=== PATIENT | male | born 1995 | race Caucasian/White ===

== ENCOUNTER 2020-12-18 14:49 | Day surgery (SDC) | payer BC ==
--- NOTE | 2020-12-18 15:33 | PCM.HP.2 ---
H&P History of Present Illness - General Date of Service: 12/18/20 Admit Problem/Dx: Admission Diagnosis/Problem Admission Diagnosis/Problem Appendicitis Source of Information: Patient History Limitations: Reports: No Limitations - History of Present Illness Initial Comments - Free Text/Narative: Healthy 25 yo man developed abdominal pain last night, most severe at right lo wer quadrant. He reports nausea as well. No vomiting. Not passing flatus today. No fever. He has never had this pain before. He has no medical problems, no prior abdominal surgery, and has lab work and imaging that show findings of acute appendicitis. Middle Abdominal Pain Score (Numeric/FACES): 6 - Related Data Allergies/Adverse Reactions: Allergies Allergy/AdvReac Type Severity Reaction Status Date / Time No Known Allergies Allergy Verified 12/18/20 14:59 Home Medications: Home Meds . [No Known Home Meds] 12/18/20 [History] Past Medical History HEENT History: Reports: None Cardiovascular History: Reports: None Respiratory History: Reports: None Gastrointestinal History: Reports: GERD, PUD Genitourinary History: Reports: None Musculoskeletal History: Reports: Back Pain, Chronic Neurological History: Reports: None Psychiatric History: Reports: ADD Endocrine/Metabolic History: Reports: None Hematologic History: Reports: None Immunologic History: Reports: None Oncologic (Cancer) History: Reports: None Dermatologic History: Reports: None - Infectious Disease History Infectious Disease History: Reports: Herpes, Novel Coronavirus Other Infectious Disease History: tested postive 3 months ago for COVID - Past Surgical History HEENT Surgical History: Reports: Oral Surgery Musculoskeletal Surgical History: Reports: None Social & Family History - Family History Family Medical History: No Pertinent Family History - Tobacco Use Tobacco Use Status *Q: Current Some Day Tobacco User Years of Tobacco use: 5 Packs/Tins Daily: 0.1 - Caffeine Use Caffeine Use: Reports: Coffee, Energy Drinks - Recreational Drug Use Recreational Drug Use: No H&P Review of Systems - Review of Systems: Review Of Systems: See Below General: Reports: Malaise HEENT: Reports: No Symptoms Pulmonary: Reports: No Symptoms Cardiovascular: Reports: No Symptoms Gastrointestinal: Reports: Abdominal Pain, Anorexia, Nausea Genitourinary: Reports: No Symptoms Musculoskeletal: Reports: No Symptoms Skin: Reports: No Symptoms Psychiatric: Reports: No Symptoms Neurological: Reports: No Symptoms Hematologic/Lymphatic: Reports: No Symptoms Immunologic: Reports: No Symptoms Exam - Exam Exam: See Below - Vital Signs Vital Signs: Last Vital Signs Temp 36.2 C 12/18/20 15:01 Pulse 80 12/18/20 15:01 Resp 18 12/18/20 15:01 BP 127/66 12/18/20 15:01 Pulse Ox 100 12/18/20 15:01 Weight: 72.575 kg - Exam General: Alert, Oriented, Cooperative HEENT: Conjunctiva Clear Neck: Supple, Trachea Midline Lungs: Clear to Auscultation, Normal Respiratory Effort Cardiovascular: Regular Rate, Regular Rhythm GI/Abdominal Exam: Other (McBurney point tenderness) Extremities: Normal Inspection Skin: Warm, Dry Neuro Extensive - Mental Status: Alert, Oriented x3 Psychiatric: Normal Mood Sepsis Event Note - Evaluation Sepsis Screening Result: No Definite Risk - Focused Exam Vital Signs: Vital Signs Temp Pulse Resp BP Pulse Ox 12/18/20 15:01 36.2 C 80 18 127/66 100 Problem List Initiated/Reviewed/Updated: Yes Orders Last 24hrs: Active Orders 24 hr Category Date Time Status Patient Status [ADT] Routine ADT 12/18/20 15:21 Active CORONAVIRUS COVID-19 WILLIE [MOLEC] Stat Lab 12/18/20 14:55 Received Schedule Procedure [COMM] Stat Oth 12/18/20 15:22 Ordered Assessment/Plan Comment:: Acute appendicitis. Plan for laparoscopic appendectomy. Anticipate discharge to home from PACU. - Mortality Measure Prognosis:: Good
[2020-12-18] MEDS ORDERED: Albuterol 0.083% 2.5 MG/3 ML Neb Soln NEB SCH (15:40)
[2020-12-18] MEDS ORDERED: Bupivacaine 0.5%/EPINEPHrine 1:200,000 50 ML MDV ONE (15:50)
--- NOTE | 2020-12-18 15:52 | PCM.PREANE ---
Preanesthetic Assessment - Procedure Proposed Procedure: Laparoscopic Appendectomy - Anesthesia/Transfusion/Family Hx Anesthesia History: Prior Anesthesia Without Reaction Family History of Anesthesia Reaction: No Transfusion History: No Prior Transfusion(s) - Review of Systems General: Appetite Pulmonary: No Symptoms (Some day smoker, vapes daily multiple times. ) Cardiovascular: No Symptoms Gastrointestinal: Abdominal Pain Neurological: Other (Chronic back pain) Other: Reports: None - Physical Assessment NPO Status Date: 12/17/20 NPO Status Time: 18:00 Vital Signs: Last Vital Signs Temp 36.2 C 12/18/20 15:01 Pulse 80 12/18/20 15:01 Resp 18 12/18/20 15:01 BP 127/66 12/18/20 15:01 Pulse Ox 100 12/18/20 15:01 Height: 1.85 m Weight: 72.575 kg ASA Class: 2E Mental Status: Alert & Oriented x3 Airway Class: Mallampati = 2 Dentition: Reports: Normal Dentition Thyro-Mental Finger Breadths: 3 Mouth Opening Finger Breadths: 3 ROM/Head Extension: Full Lungs: Clear to Auscultation, Normal Respiratory Effort Cardiovascular: Regular Rate, Regular Rhythm - Allergies Allergies/Adverse Reactions: Allergies Allergy/AdvReac Type Severity Reaction Status Date / Time No Known Allergies Allergy Verified 12/18/20 14:59 - Anesthesia Plan Pre-Op Medication Ordered: Anxiolytic, Other (Albuterol Nebulizer ) - Acknowledgements Anesthesia Type Planned: General Anesthesia Pt an Appropriate Candidate for the Planned Anesthesia: Yes Alternatives and Risks of Anesthesia Discussed w Pt/Guardian: Yes Pt/Guardian Understands and Agrees with Anesthesia Plan: Yes PreAnesthesia Questionnaire HEENT History: Reports: None Cardiovascular History: Reports: None Respiratory History: Reports: None Gastrointestinal History: Reports: GERD, PUD Genitourinary History: Reports: None Musculoskeletal History: Reports: Back Pain, Chronic Neurological History: Reports: None Psychiatric History: Reports: ADD Endocrine/Metabolic History: Reports: None Hematologic History: Reports: None Immunologic History: Reports: None Oncologic (Cancer) History: Reports: None Dermatologic History: Reports: None - Infectious Disease History Infectious Disease History: Reports: Herpes, Novel Coronavirus Other Infectious Disease History: tested postive 3 months ago for COVID - Past Surgical History HEENT Surgical History: Reports: Oral Surgery Musculoskeletal Surgical History: Reports: None - SUBSTANCE USE Tobacco Use Status *Q: Current Some Day Tobacco User Tobacco Use Within Last Twelve Months: Cigarettes Recreational Drug Use History: No - HOME MEDS Home Medications: Home Meds . [No Known Home Meds] 12/18/20 [History] - CURRENT (IN HOUSE) MEDS Current Meds: Current Medications Albuterol (Proventil Neb Soln) 2.5 mg NEB ONETIME HEMA Stop: 12/18/20 23:00 Last Admin: 12/18/20 15:46 Dose: 2.5 mg Documented by:
[2020-12-18] MEDS ORDERED: Lidocaine 1% 4 ML ONE (15:55)
[2020-12-18] MEDS ORDERED: Ondansetron 4 MG/2 ML SDV ONE (15:55)
[2020-12-18] MEDS ORDERED: Rocuronium 50 MG/5 ML Vial ONE (15:55)
[2020-12-18] MEDS ORDERED: Lactated Ringers 1,000 ML ONE (15:55)
[2020-12-18] MEDS ORDERED: Propofol 200 MG/20 ML SDV ONE (15:56)
[2020-12-18] MEDS ORDERED: fentaNYL 250 MCG/5 ML SDV ONE (15:56)
[2020-12-18] MEDS ORDERED: Midazolam 1 MG/ML 2 ML SDV ONE ×2 (15:56→17:30)
--- NOTE | 2020-12-18 16:02 | PCM.PRNOTE ---
- Free Text/Narrative Note: Date: 12/18/2020 Operation: laparoscopic appendectomy Diagnosis: acute appendicitis Surgeon: Leonid Hernandez MD Antibiotic: 2 g cefoxitin IV pre-op EBL: 10 cc Findings: acute appendicitis without gangrene, perforation or abscess Detailed Report: The patient was taken to the OR and placed on the table in supine position. Time out was performed. General endotracheal anesthesia was initiated. The patient's left arm was tucked at his side. Abdominal hair was clipped and the abdomen was prepped and draped in usual sterile fashion. A Veress needle was placed at the left upper quadrant to establish pneumoperitoneum. Once insufflated to 15 mm Hg, Air was aspirated at the umbilicus. A 12 mm bladed trocar was placed just inferior to the umbilicus and a 5 mm 30 degree laparoscope was inserted into the abdomen. The patient was placed in Trendelenburg and rotated to the surgeon standing on the patient's left side. Additional 5 mm ports were placed superior to the pubic symphysis and at the left lower quadrant under laparoscopic visualization. The ascending colon and cecum were adherent to the anterior abdominal wall; these attachments were taken down with the Ligasure. The appendix was identified coming off the cecum and appeared inflamed. There was inflammatory exudate that was stripped off the appendix in order to get better visualization and layout of the anatomy. A window as developed in the mesoappendix at the base of the appendix, and the appendix and part of the cecum were divided using a powered laparoscopic stapler with 30 mm white staple load x 3. The mesoappendix was divided using the [place] Ligasure. The specimen and fibrinous debris were placed in an endocatch bag and removed from the abdomen. The dissection field appeared dry after suctioning. The 12 mm port was removed and the fascia was closed with 0 vicryl using the laparoscopic suture passer. 5 mm ports were removed and pneumoperitoneum released. All incisions were closed at the level of skin with vicryl suture and dressed with dermabond. The patient was extubated in the OR and transferred to PACU in good condition.
[2020-12-18] MEDS ORDERED: Dexamethasone 4 MG/ML 5 ML MDV ONE (16:37)
[2020-12-18] MEDS ORDERED: Glycopyrrolate 0.2 MG/ML SDV ONE (16:54)
[2020-12-18] MEDS ORDERED: Ondansetron 4 MG Tab.DIS PO PRN (17:06)
[2020-12-18] MEDS ORDERED: Ondansetron 4 MG/2 ML SDV IVPUSH PRN (17:16)
[2020-12-18] MEDS ORDERED: HYDROmorphone 0.5 MG/0.5 ML Syringe IVPUSH PRN (17:16)
[2020-12-18] MEDS ORDERED: fentaNYL 100 MCG/2 ML SDV IVPUSH PRN (17:16)
--- NOTE | 2020-12-18 17:16 | PCM.POSTAN ---
POST ANESTHESIA ASSESSMENT - MENTAL STATUS Mental Status: Alert, Oriented - VITAL SIGNS Vital Signs: Last Vital Signs Temp 36.2 C 12/18/20 15:01 Pulse 80 12/18/20 15:01 Resp 18 12/18/20 15:01 BP 127/66 12/18/20 15:01 Pulse Ox 100 12/18/20 15:01 - RESPIRATORY Respiratory Status: Respiratory Rate WNL, Airway Patent, O2 Saturation Stable - CARDIOVASCULAR CV Status: Pulse Rate WNL, Blood Pressure Stable - GASTROINTESTINAL GI Status: No Symptoms - PAIN Pain Score: 5 - POST OP HYDRATION Hydration Status: Adequate & Stable
[2020-12-18] MEDS: Meperidine 50 MG/ML Vial IVPUSH ONE ×3 (17:30→17:37)
--- NOTE | 2020-12-18 18:36 | PCM48HPAN ---
Post Anesthesia Note - EVALUATION WITHIN 48HRS OF ANESTHETIC Vital Signs in Normal Range: Yes Patient Participated in Evaluation: Yes Respiratory Function Stable: Yes Airway Patent: Yes Cardiovascular Function Stable: Yes Hydration Status Stable: Yes Pain Control Satisfactory: Yes Nausea and Vomiting Control Satisfactory: Yes Mental Status Recovered: Yes Vital Signs: Last Vital Signs Temp 36.7 C 12/18/20 18:01 Pulse 62 12/18/20 18:01 Resp 18 12/18/20 18:01 BP 121/68 12/18/20 18:01 Pulse Ox 97 12/18/20 18:01
[2020-12-18] MEDS: Acetaminophen 325 MG Tab PO SCH (21:42)
[2020-12-18] MEDS ORDERED: Morphine 2 MG/ML SYRINGE ONE (22:01)
[2020-12-18] MEDS ORDERED: Morphine 2 MG/ML SYRINGE IVPUSH ONE (22:03)
[2020-12-18] MEDS: oxyCODONE 5 MG Tab PO PRN (22:06)
[2020-12-19] MEDS: oxyCODONE 5 MG Tab PO PRN ×2 (03:14→08:12)
[2020-12-19] MEDS: Acetaminophen 325 MG Tab PO SCH (03:15)
== END 2020-12-19 12:07 | disposition home or self-care (01) ==
LOC: JD.ED 14:49 → JD.SDS 15:53 → JD.MS 18:39 → JD.SDS 12-19 12:07
PROVIDERS: ATTEND Surgery
DX: K35.33 Acute appendicitis with perforation, localized peritonitis, and gangrene, with abscess (principal); K21.9 Gastro-esophageal reflux disease without esophagitis; M54.5 Low back pain; G89.29 Other chronic pain; F17.210 Nicotine dependence, cigarettes, uncomplicated; Z86.16 Personal history of COVID-19; Z01.812 Encounter for preprocedural laboratory examination; Z20.822 Contact with and (suspected) exposure to COVID-19
CPT/HCPCS: 44970; 87635; 94640; A9270; J0694; J1100; J1170; J2175; J2250; J2270; J2405; J2704; J2710; J3010; J3490; J7120; 00840; U0002